=== PATIENT | female | born 1960 | race African-American/Black ===

== ENCOUNTER 2016-10-24 13:06 | Emergency (ER) | payer OTHER ==
[~2016-10-24] VITALS: Ht 170.2 cm; Wt 66.7 kg
== END 2016-10-24 14:10 | disposition home or self-care (01) ==
LOC: CFTX 13:06 → CED 13:06 → CFTX 13:59
DX: M79.662 Pain in left lower leg (principal); G89.4 Chronic pain syndrome; M54.10 Radiculopathy, site unspecified; G62.9 Polyneuropathy, unspecified
CPT/HCPCS: 99283